=== PATIENT | male | born 1980 ===

== ENCOUNTER 2018-06-10 09:35 | Inpatient (IN) | payer MEDICAID ==
[2018-06-10 09:46] VITALS: BMI 26.0
[2018-06-10 09:58] LABS: EOS # 0.1 K/uL (0.0-0.7); LYMPH # 1.4 K/uL (1.0-4.3); MONO # 0.6 K/uL (0.0-0.8); NEUT # 0.6 K/uL (1.8-7.0); WHITE BLOOD COUNT 2.8 K/uL (4.8-10.8)
[2018-06-10 10:04] LABS: BASO % 1.5 % (0.0-2.0); EOS % 4.5 % (0.0-4.0); MEAN CELL VOLUME 84.5 fL (80.0-94.0); MEAN CORPUSCULAR HEMOGLOBIN 28.6 pg (27.0-31.0); MEAN CORPUSCULAR HGB CONC 33.8 g/dL (33.0-37.0); MEAN PLATELET VOLUME 9.8 fL (7.2-11.7); MONO % 21.8 % (0.0-10.0); NEUT % 22.2 % (50.0-75.0); NRBC % 0.2 % (0.0-2.0); RBC 4.56 Mil/uL (4.40-5.90); RED CELL DISTRIBUTION WIDTH 14.5 % (11.5-14.5)
[2018-06-10 10:05] LABS: PLATELET COUNT 112 K/uL (130-400)
[2018-06-10 10:13] LABS: URINE BACTERIA RARE (<OCC); URINE BILIRUBIN NEGATIVE (NEGATIVE); URINE BLOOD 1+ (NEGATIVE); URINE CLARITY Clear (Clear); URINE COLOR Yellow (YELLOW); URINE GLUCOSE (UA) NORMAL (Normal); URINE LEUKOCYTE ESTERASE NEG Leu/uL (Negative); URINE PROTEIN NEGATIVE (NEGATIVE); URINE UROBILINOGEN NORMAL mg/dL (0.2-1.0)
--- NOTE | 2018-06-10 10:16 | C.PDOC ---
History Of Present Illness 37 y/o male, w/PMhx of bipolar disorder, brought to ER by [facility]ANIS from rehab center for evaluation of suicidal ideation. Patient states that he wants to hurt himself. Patient denies having homicidal ideation and active physical complaints. Time Seen by Provider: 06/10/18 09:41 Chief Complaint (Nursing): Psychiatric Evaluation History Per: Patient History/Exam Limitations: no limitations Onset/Duration Of Symptoms: Days Current Symptoms Are (Timing): Still Present Past Medical History Reviewed: Historical Data, Nursing Documentation, Vital Signs Vital Signs: Last Vital Signs Temp 98 F 06/10/18 12:44 Pulse 74 06/10/18 12:44 Resp 18 06/10/18 12:44 BP 113/79 06/10/18 12:44 Pulse Ox 99 06/10/18 12:46 - Medical History PMH: Anxiety, Depression, HIV, HTN, Hypothyroidism, Pneumonia (PCP), Sexually Transmitted Disease Denies: Cardia Arrhythmia, Diabetes, Hepatitis, Chronic Kidney Disease, Seizures Other Surgeries: Hx of surgeries - [facility] Procedures CLOSURE SKIN & SUBCUTANEOUS NEC (08/04/14) GROUP PSYCHOTHERAPY (05/06/18) INDIV PSYCHOTHERAPY FOR SUBSTANCE ABUSE, COGNITIV BEHAVIORAL (05/06/18) INDIV PSYCHOTHERAPY FOR SUBSTANCE ABUSE, PSYCHOEDUCATION (05/06/18) INTRODUCTION OF SERUM/TOX/VACCINE INTO MUSCLE, PERC APPROACH (05/06/18) NEBULIZER THERAPY (05/09/14) Family History: States: No Known Family Hx - Social History Hx Tobacco Use: No Hx Alcohol Use: Yes Hx Substance Use: Yes (meth) - Immunization History Hx Tetanus Toxoid Vaccination: No Hx Influenza Vaccination: No Hx Pneumococcal Vaccination: No Review Of Systems Except As Marked, All Systems Reviewed And Found Negative. Constitutional: Negative for: Fever, Chills Psych: Positive for: Suicidal ideation Physical Exam - Physical Exam Appears: Non-toxic, No Acute Distress, Other (calm, cooperative, answering questions) Skin: Normal Color, Warm, Dry Head: Atraumatic, Normacephalic Eye(s): bilateral: Normal Inspection Nose: Normal Oral Mucosa: Moist Neck: Supple Chest: Symmetrical Cardiovascular: Rhythm Regular Respiratory: Normal Breath Sounds, No Rales, No Rhonchi, No Wheezing Gastrointestinal/Abdominal: Normal Exam, Soft, No Tenderness, No Guarding, No Rebound Neurological/Psych: Oriented x3, Normal Speech ED Course And Treatment - Laboratory Results Result Diagrams: 06/10/18 09:54 06/10/18 09:54 Lab Interpretation: No Acute Changes O2 Sat by Pulse Oximetry: 99 (RA) Pulse Ox Interpretation: Normal Progress Note: Case discussed and patient evaluated by warm in worker who requestr admission to Dr Barroso Reassessment Condition: Unchanged - Physician Consult Information Physician Contacted: Ayanna Barroso Outcome Of Conversation: admit Medical Decision Making Medical Decision Making: Plan: --Labs --UA Disposition Discussed With Dr.: Ayanna Barroso Doctor Will See Patient In The: Hospital Counseled Patient/Family Regarding: Studies Performed, Diagnosis, Need For Followup - Disposition Disposition: HOSPITALIZED Disposition Time: 13:00 Condition: STABLE Forms: [facility] (Salvadorean) - POA Present On Arrival: None - Clinical Impression Clinical Impression: Bipolar 1 disorder, Manic bipolar I disorder - PA / INTERNAL CONTROL ANALYST / Resident Statement MD/DO has reviewed & agrees with the documentation as recorded. - Scribe Statement The provider has reviewed the documentation as recorded by the Talisha Lozada Provider Attestation All medical record entries made by the Talisha were at my direction and personally dictated by me. I have reviewed the chart and agree that the record accurately reflects my personal performance of the history, physical exam, medical decision making, and the department course for this patient. I have also personally directed, reviewed, and agree with the discharge instructions and disposition. Decision To Admit - Pt Status Changed To: Hospital Disposition Of: Inpatient - Admit Certification Admit to Inpatient:: After my assessment, the patient will require hospitalization for at least two midnights. This is because of the severity of symptoms shown, intensity of services needed, and/or the medical risk in this patient being treated as an outpatient. - InPatient: Physician Admission Certification: I certify that this patient requires 2 or more midnights of care for the following reason:: Bipolar - . Bed Request Type: Psychiatry Admitting Physician: Ayanna Barroso Patient Diagnosis: Bipolar 1 disorder, Manic bipolar I disorder
[2018-06-10 10:19] LABS: ALB/GLOB RATIO 0.9 (1.0-2.1); ALBUMIN 4.3 g/dL (3.5-5.0); ALT/SGPT 15 U/L (21-72); AST/SGOT 28 U/L (17-59); BLOOD UREA NITROGEN 22 mg/dL (9-20); CALCIUM 9.5 mg/dl (8.6-10.4); GFR AFRICAN-AMERICAN > 60; GFR NON-AFRICAN AMERICAN > 60
[2018-06-10 10:20] LABS: BANDS 1 % (0-2); BASOPHIL 3 % (0-2); EOSINOPHIL 6 % (0-4); LYMPHOCYTE 55 % (20-40); MONOCYTE 15 % (0-10); NEUTROPHIL 20 % (50-75); TOTAL CELLS COUNTED 100
[2018-06-10 10:21] LABS: PLATELET ESTIMATE SLIGHTLY DECREASED (NORMAL)
[2018-06-10 10:59] LABS: BARBITURATES, UR NEGATIVE (NEGATIVE); BENZODIAZEPINES, UR NEGATIVE (NEGATIVE); OPIATES, UR NEGATIVE (NEGATIVE); PHENCYCLIDINE, UR NEGATIVE (NEGATIVE)
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
--- NOTE | 2018-06-11 03:03 | PCM.BM ---
<Elizabeth Land - Last Filed: 06/11/18 03:02> Treatment Plan Problems - Problems identified on initial assessmt Depression Date Initiated: 06/10/18 Time Initiated: 14:30 Status: Active Treatment assets and liabiliti Patient Assests: cooperative, educated Patient Liabilities: medical problems (HIV +) - Milieu Protocol Maintain good personal hygiene: daily Encourage regular showers, daily Remind patient to perform daily oral care, every shift Assist patient to perform ADL's Conduct patient checks and document Observation sheet: Q15 minutes Maintain personal safety: every shift Educate patient to report safety concerns to staff, every shift Monitor environment for contraband/sharps Medication safety: Monitor for expected outcome, potential side effects: every shift, Assess barriers to learning: every shift, Assess readiness for medication education: every shift <Ayanna Barroso - Last Filed: 06/12/18 11:06> - Diagnosis (1) Bipolar 1 disorder Status: Acute Interventions: 06/12/18 11:06 * Assess/adjust medications daily and /or as needed * See patient on an individual basis 7x/week to assess level of manic behaviors and stability * Discuss risks, benefits, side effects and alternatives of medications * <Kelley Benítez - Last Filed: 06/12/18 11:50> Family Contact Family involvement: Family/SO is involved Family contact: Patient agrees to contact Family contact name: Mother Family contacted how many times per week?: 1 - Goals for Treatment Patient goals for treatment: "I want to go home." Discharge/Continuing Care - Education Needs Education Needs: Patient Medication, Patient Coping Skills - Discharge Discharge Criteria: Tolerates medication w/o severe side effects, Reduction of target symptoms Discharge to:: Home, With Family - Treatment Team Participation Discussed with Family/SO: No Was Patient/Family/SO present at Treatment Team Meeting: Yes
[2018-06-11] MEDS: Levothyroxine 25 MCG TAB PO SCH (06:23)
[2018-06-11] MEDS: GENVOYA PO SCH (09:55)
--- NOTE | 2018-06-11 14:47 | PCM.PYCHPN ---
Psychiatric Progress Note - Psychiatric Progress Note Patient seen today, length of contact: 15 minutes Patient Chief Complaint: "I am feeling irritable." Problems Identified/Issues Discussed: Patient seen and evaluated, chart reviewed and discussed with the nurse. Pt reports depressed mood, feelings of hopelessness and helplessness. He still reports irritability and agitation. Pt remained disorganized and internally preoccupied. He remained isolated and withdrawn, and confined to her room. Patient is compliant with medications and denies any side effects. Symptoms are improving but pt needs more time to stabilize. Support and psychoeducation given. Medication Change: No Medical Record Reviewed: Yes Mental Status Examination - Cognitive Function Orientation: Person, Place, Situation, Time Memory: Intact Attention: WNL Concentration: Poor Association: Loose Fund of Knowledge: WNL - Mood Mood: Depressed, Anxious - Affect Affect: Constricted - Speech Speech: Appropriate - Formal Thought Process Formal Thought Process: Paranoia, Loosening of associations, Flight of ideas - Suicidal Ideation Suicidal Ideation: No - Homicidal Ideation Homicidal Ideation: No Goal/Treatment Plan - Goal/Treatment Plan Need for Continued Stay: Discharge may exacerbated symptoms, Severe functional impairment Progress Toward Problem(s) and Goals/Treatment Plan: Bipolar disorder mixed severe with psychotic features R/O Schizoaffective disorder bipolar type CBT Psychoeducation Supportive therapy, group therapy Risperdal 1 mg po BID Cogentin 1 mg p BID Trazodone 50 mg by mouth daily at bedtime Depakote DR 250 mg PO BID Stimulant use disorder severe in early remission CBT Psychoeducation Supportive therapy, individual therapy Use HI for abstinence - Smoking Cessation Smoking Cessation Initiated: No
[2018-06-11] MEDS: Fluticasone Nasal 50 mcg/Spray NAS SCH (22:00)
[2018-06-12] MEDS: Levothyroxine 25 MCG TAB PO SCH (06:06)
[2018-06-12] MEDS: GENVOYA PO SCH (09:59)
[2018-06-12] MEDS: Divalproex 250 mg DR Tab PO SCH (17:31)
[2018-06-12] MEDS: Hydrocortisone 1% Cream (30 GM) TOP SCH (21:30)
[2018-06-12] MEDS: Fluticasone Nasal 50 mcg/Spray NAS SCH (22:35)
[2018-06-13] MEDS: Levothyroxine 25 MCG TAB PO SCH (06:08)
[2018-06-13] MEDS: Hydrocortisone 1% Cream (30 GM) TOP SCH ×2 (09:27→17:25)
[2018-06-13] MEDS: Divalproex 250 mg DR Tab PO SCH ×2 (09:28→17:23)
[2018-06-13] MEDS: GENVOYA PO SCH (09:40)
[2018-06-13] MEDS: Fluticasone Nasal 50 mcg/Spray NAS SCH (22:21)
[2018-06-14] MEDS: Levothyroxine 25 MCG TAB PO SCH (06:06)
[2018-06-14 06:58] VITALS: RESP 20
[2018-06-14] MEDS: Divalproex 250 mg DR Tab PO SCH ×2 (09:14→17:18)
[2018-06-14] MEDS: Hydrocortisone 1% Cream (30 GM) TOP SCH ×2 (09:15→17:23)
[2018-06-14] MEDS: GENVOYA PO SCH (09:27)
[2018-06-14] MEDS: Fluticasone Nasal 50 mcg/Spray NAS SCH (21:37)
[2018-06-15] MEDS: Levothyroxine 25 MCG TAB PO SCH (05:58)
[2018-06-15 06:46] VITALS: BP 107/70; PULSE 71; TEMP 97.7; O2SAT 96
[2018-06-15] MEDS: GENVOYA PO SCH (10:09)
[2018-06-15] MEDS: Divalproex 250 mg DR Tab PO SCH (10:09)
[2018-06-15] MEDS: Hydrocortisone 1% Cream (30 GM) TOP SCH (10:09)
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
--- NOTE | 2018-06-15 10:12 | PCM.PYCHPN ---
Psychiatric Progress Note - Psychiatric Progress Note Patient seen today, length of contact: 15 minutes Patient Chief Complaint: "I am feeling irritable." Problems Identified/Issues Discussed: Patient seen and evaluated, chart reviewed and discussed with the nurse. Pt reports depressed mood, feelings of hopelessness and helplessness. He still reports irritability and agitation. Pt remained disorganized and internally preoccupied. He remained isolated and withdrawn, and confined to her room. Patient is compliant with medications and denies any side effects. Symptoms are improving but pt needs more time to stabilize. Support and psychoeducation given. Medication Change: No Medical Record Reviewed: Yes Mental Status Examination - Cognitive Function Orientation: Person, Place, Situation, Time Memory: Intact Attention: WNL Concentration: WNL Association: [facility] Fund of Knowledge: [facility] Decription of patient's judgement and insights: good, fair - Mood Mood: Neutral - Affect Affect: Constricted - Speech Speech: Soft - Formal Thought Process Formal Thought Process: No Impairment Psychotic Thoughts and Behaviors: denies any AVH - Suicidal Ideation Suicidal Ideation: No - Homicidal Ideation Homicidal Ideation: No Goal/Treatment Plan - Goal/Treatment Plan Need for Continued Stay: Discharge may exacerbated symptoms, Severe functional impairment Progress Toward Problem(s) and Goals/Treatment Plan: Bipolar disorder mixed severe with psychotic features R/O Schizoaffective disorder bipolar type CBT Psychoeducation Supportive therapy, group therapy Risperdal 1 mg po BID Cogentin 1 mg p BID Trazodone 50 mg by mouth daily at bedtime Depakote DR 250 mg PO BID Stimulant use disorder severe in early remission CBT Psychoeducation Supportive therapy, individual therapy Use [place] for abstinence
== END 2018-06-15 12:30 | disposition home or self-care (01) | DRG 430 ==
LOC: C.ER 09:35 → C.5E 12:41
PROVIDERS: ADMIT Psychiatry & Neurology Psychiatry; ATTEND Psychiatry & Neurology Psychiatry
PROC: GZHZZZZ Group Psychotherapy (ICD-10-PCS; principal; 2018-06-10)
PROC: GZ58ZZZ Individual Psychotherapy, Cognitive-Behavioral (ICD-10-PCS; 2018-06-10)
PROC: GZ56ZZZ Individual Psychotherapy, Supportive (ICD-10-PCS; 2018-06-10)
DX: F31.64 Bipolar disorder, current episode mixed, severe, with psychotic features (principal); R45.851 Suicidal ideations; F15.21 Other stimulant dependence, in remission; F41.9 Anxiety disorder, unspecified; I10 Essential (primary) hypertension; E03.9 Hypothyroidism, unspecified; Z21 Asymptomatic human immunodeficiency virus [HIV] infection status; Z86.19 Personal history of other infectious and parasitic diseases